=== PATIENT | male | born 1940 | race Caucasian/White ===

== ENCOUNTER 2018-08-19 10:04 | Emergency (ER) | payer OTHER ==
[2018-08-19 12:53] LABS: Absolute Monocytes 1.6 K/uL (0.1-1.3); Absolute Neutrophil 7.6 K/uL (1.8-8.0); Basophils % 0.2 % (0-1.3); Eosinophils % 0.5 % (0-4.4); Hematocrit 44.9 % (39.6-49.0); Lymphocytes % 24.8 % (15.3-44.8); MCH 30.9 pg (27.0-35.0); MCV 90.9 fL (80-100); MPV 7.1 fL (7.6-11.3); Monocytes % 12.7 % (3.3-12.3); RBC Red Blood Cell Count 4.94 M/uL (4.33-5.43)
[2018-08-19 12:54] LABS: Protime INR 1.09
[2018-08-19] MEDS ORDERED: NA CHLORIDE 0.9% 500 ML ONE (12:55)
[2018-08-19 13:13] LABS: ALT/SGPT 50 U/L (12-78); AST/SGOT 25 U/L (15-37); Albumin 3.4 g/dL (3.4-5.0); Alkaline Phosphatase 97 U/L (45-117); BUN Blood Urea Nitrogen 27 mg/dL (7-18); Bicarbonate 27 mmol/L (21-32); Bilirubin Direct 0.1 mg/dL (0-0.2); Bilirubin Total 0.4 mg/dL (0.2-1.0); Glucose Level 98 mg/dL (74-106); Lipase 109 U/L (73-393); Magnesium 2.3 mg/dL (1.8-2.4); NT PRO-BNP 306 pg/mL (<450); Potassium 4.1 mmol/L (3.5-5.1); Protein, Total 9.1 g/dL (6.4-8.2); Sodium Level 140 mmol/L (136-145); Troponin (Emerg Dept Use Only) < 0.02 ng/mL (0.0-0.045)
--- NOTE | 2018-08-19 14:14 | RAD REPORT ---
EXAM DESCRIPTION: CT - Abdomen Pelvis W Contrast - 08/19/2018 1:53 pm CLINICAL HISTORY: Abdominal pain/ lower abdominal pain. COMPARISON: none. TECHNIQUE: Computed axial tomography of the abdomen pelvis was obtained. 100 cc Isovue-300 was admin istered intravenously. Oral contrast was not requested which limits evaluation of bowel. All CT scans are performed using dose optimization technique as appropriate and may include automated exposure control or mA/KV adjustment according to patient size. FINDINGS: The liver, pancreas, adrenal and kidneys appear unremarkable. Splenic granulomata are seen . A small left renal cyst is seen The appendix is normal. Diverticula stem from the colon. Mild stranding is present adjacent to sigmoid colon. An abscess is n ot noted. The prostate gland is mildly to moderately enlarged. Right inguinal hernia contains fat. Bilateral lower external iliac lymph node measures up to 1.5 centimeters IMPRESSION: Mild sigmoid diverticulitis Mild lower pelvic lymphadenopathy. A followup ultrasound in 3 months is recommended to assess stabili ty/resolution
--- NOTE | 2018-08-19 14:24 | RAD REPORT ---
EXAM DESCRIPTION: [place] Single View08/19/2018 1:22 pm CLINICAL HISTORY: Chest pain COMPARISON: none FINDINGS: The lungs appear clear of acute infiltrate. The heart is normal size IMPRESSION: No acute abnormalities displayed
--- NOTE | 2018-08-19 15:07 | ER ---
Nurse's Notes [facility] Name: Deirdre Hodges Age: 78 yrs Sex: Male : 1940 Arrival Date: 08/19/2018 Time: 10:09 Bed 18 Private MD: Out, [facility] Diagnosis: Diverticulitis of large intestine without perforation or abscess without bleeding Presentation: 08/19 10:19 Presenting complaint: Patient states: Pain all over for 2 weeks. Seen by PCP this week aj for same complaint. No SOB, fever, or cough reported. Transition of care: patient was not received from another setting of care. Onset of symptoms was August 05, 2018. Risk Assessment: Do you want to hurt yourself or someone else? Patient reports no desire to harm self or others. Initial Sepsis Screen: Does the patient meet any 2 criteria? No. Patient's initial sepsis screen is negative. Does the patient have a suspected source of infection? No. Patient's initial sepsis screen is negative. Care prior to arrival: None. 10:19 Method Of Arrival: Ambulatory aj 10:19 Acuity: NAZANIN 3 aj Triage Assessment: 10:22 General: Appears in no apparent distress. comfortable, Behavior is calm, cooperative, aj appropriate for age. Pain: Complains of pain in entire body. Neuro: Level of Consciousness is awake, alert, obeys commands, Oriented to person, place, time, situation, Appropriate for age. Respiratory: Airway is patent Respiratory effort is even, unlabored, Respiratory pattern is regular, symmetrical. Derm: Skin is intact, is healthy with good turgor, Skin is pink, warm \T\ dry. normal. Musculoskeletal: Reports body aches. 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 - Social history:: Smoking status: Patient/guardian denies using tobacco. - Ebola Screening: : Patient negative for fever greater than or equal to 101.5 degrees Fahrenheit, and additional compatible Ebola Virus Disease symptoms Patient denies exposure to infectious person Patient denies travel to an Ebola-affected area in the 21 days before illness onset No symptoms or risks identified at this time. Screenin:23 Abuse screen: Denies threats or abuse. Denies injuries from another. Nutritional bp screening: No deficits noted. Tuberculosis screening: No symptoms or risk factors identified. Fall Risk None identified. Assessment: 12:21 General: Appears in no apparent distress. comfortable, Behavior is calm, cooperative, bp appropriate for age. Pain: Complains of pain in generalized. Neuro: Level of Consciousness is awake, alert, obeys commands, Oriented to person, place, time, situation, Appropriate for age. Cardiovascular: No deficits noted. Respiratory: Airway is patent Respiratory effort is even, unlabored, Respiratory pattern is regular, symmetrical. GI: No signs and/or symptoms were reported involving the gastrointestinal system. : No signs and/or symptoms were reported regarding the genitourinary system. EENT: No deficits noted. Derm: No deficits noted. Musculoskeletal: Circulation, motion, and sensation intact. Range of motion: intact in all extremities. 14:15 Reassessment: PT RETURNED FROM CT. ALL CURRENT STUDIES COMPLETE, RESULTS PENDING. bp 15:22 Reassessment: PT D/C HOME AMBULATORY WITH FAMILY, DX WITH DIVERTICULITIS. bp Vital Signs: 10:22 BP 155 / 69; Pulse 76; Resp 19; Temp 97.4; Pulse Ox 94% on R/A; Weight 80.29 kg; Height aj 6 ft. 0 in. (182.88 cm); 12:42 BP 158 / 119; Pulse 66; Resp 14; Pulse Ox 98% ; bp 14:16 BP 142 / 64; Pulse 59; Resp 14; Pulse Ox 98% ; bp 14:40 BP 132 / 64; Pulse 63; Resp 14; Pulse Ox 96% ; bp 10:22 Body Mass Index 24.01 (80.29 kg, 182.88 cm) aj ED Course: 10:09 Patient arrived in ED. mr 10:10 Out, of Town is Private Physician. mr 10:21 Triage completed. aj 10:22 Arm band placed on left wrist. Patient placed in waiting room, Patient notified of wait aj time. 12:12 Timothy Croft PA is PHCP. [facility] 12:12 Sathish Young MD is Attending Physician. jm 12:21 Sb Roca, KRISTIAN is Primary Nurse. bp 12:23 Patient has correct armband on for positive identification. Bed in low position. Call bp light in reach. Side rails up X2. Adult w/ patient. 12:42 Inserted saline lock: 20 gauge in right antecubital area, using aseptic technique. bp Blood collected. 12:50 EKG done, by ED staff, reviewed by Timothy WINKLER. [facility] 13:00 Radiology exam delayed due to lab results not completed at this time. (BUN/Creatinine). cw1 13:21 X-ray completed. Portable x-ray completed in exam room. jr1 13:22 XRAY Chest (1 view) In Process Unspecified. EDMS 13:53 CT completed. Patient tolerated procedure well. Patient moved back from CT. cw1 13:54 CT Abd/Pelvis - W/Contrast In Process Unspecified. EDMS 15:22 No provider procedures requiring assistance completed. IV discontinued, intact, bp bleeding controlled, No redness/swelling at site. Pressure dressing applied. Administered Medications: 12:45 Drug: NS 0.9% 500 ml Route: IV; Rate: bolus; Site: right antecubital; bp 13:45 Follow up: IV Status: Completed infusion; IV Intake: 500ml bp Intake: 13:45 IV: 500ml; Total: 500ml. bp Outcome: 15:06 Discharge ordered by MD. [facility] 15:22 Discharged to home ambulatory, with family. bp 15:22 Condition: stable 15:22 Discharge instructions given to patient, family, Instructed on discharge instructions, follow up and referral plans. medication usage, Demonstrated understanding of instructions, follow-up care, medications, Prescriptions given X 3. 15:23 Patient left the ED. bp Signatures: Dispatcher [employer] EDMS Neelam Liriano, RN Timothy Gray PA PA jmm RiveraKim mr Randhawa Sirena jr1 Juanita Quiles cw1 Keysha Borges [facility] Sb Roca, RN RN bp
--- NOTE | 2018-08-19 15:07 | EDPHYS ---
Physician Documentation [facility] Name: Deirdre Hodges Age: 78 yrs Sex: Male : 1940 Arrival Date: 08/19/2018 Time: 10:09 Bed 18 Private MD: Out, [facility] ED Physician Sathish Young HPI: 08/19 12:22 This 78 yrs old Male presents to ER via Ambulatory with complaints of Pain jmm All Over, Weakness. 12:22 This is a 78 year old male that presents to the ED with fatigue, weakness, bilateral jmm groin pain, abdominal pain, and bilateral neck pain beginning approx 3 weeks ago. Patient states receiving a cortisone shot for hip pain with no relief of pain. Denies trauma. . Onset: The symptoms/episode began/occurred gradually, 3 week(s) ago. The patient has experienced a previous episode. 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 - Social history:: Smoking status: Patient/guardian denies using tobacco. - Ebola Screening: : Patient negative for fever greater than or equal to 101.5 degrees Fahrenheit, and additional compatible Ebola Virus Disease symptoms Patient denies exposure to infectious person Patient denies travel to an Ebola-affected area in the 21 days before illness onset No symptoms or risks identified at this time. ROS: 12:22 Cardiovascular: Negative for chest pain, palpitations, and edema, Respiratory: Negative jmm for shortness of breath, cough, wheezing, and pleuritic chest pain. 12:22 Constitutional: Positive for body aches, malaise. 12:22 Abdomen/GI: Positive for abdominal pain. 12:22 MS/extremity: Positive for pain. 12:22 All other systems are negative. Exam: 12:22 Head/Face: atraumatic. Eyes: EOMI, no conjunctival erythema appreciated Neck: jmm Trachea midline, Supple Chest/axilla: Normal chest wall appearance and motion. Cardiovascular: Regular rate and rhythm. No edema appreciated Respiratory: Normal respirations, no respiratory distress appreciated 12:22 Constitutional: The patient appears in no acute distress, alert, awake. 12:22 Abdomen/GI: Inspection: abdomen appears normal, Bowel sounds: normal, Palpation: soft, mild abdominal tenderness, in the right lower quadrant and left lower quadrant. 12:22 Back: ROM is normal. 12:22 Musculoskeletal/extremity: ROM: intact in all extremities. 12:22 Skin: Appearance: Color: normal in color. 12:22 Neuro: Orientation: is normal, Mentation: is normal, Memory: is normal. 12:22 Psych: Behavior/mood is pleasant, cooperative. Vital Signs: 10:22 BP 155 / 69; Pulse 76; Resp 19; Temp 97.4; Pulse Ox 94% on R/A; Weight 80.29 kg; Height aj 6 ft. 0 in. (182.88 cm); 12:42 BP 158 / 119; Pulse 66; Resp 14; Pulse Ox 98% ; bp 14:16 BP 142 / 64; Pulse 59; Resp 14; Pulse Ox 98% ; bp 14:40 BP 132 / 64; Pulse 63; Resp 14; Pulse Ox 96% ; bp 10:22 Body Mass Index 24.01 (80.29 kg, 182.88 cm) aj MDM: 12:22 Patient medically screened. [facility] 13:49 Data reviewed: vital signs, nurses notes. [facility] 15:03 Data reviewed: lab test result(s), radiologic studies, CT scan. Counseling: I had a [facility] detailed discussion with the patient and/or guardian regarding: the historical points, exam findings, and any diagnostic results supporting the discharge/admit diagnosis, lab results, radiology results, the need for outpatient follow up, to return to the emergency department if symptoms worsen or persist or if there are any questions or concerns that arise at home. ED course: Patient is alert and non toxic in appearance in the ED. Patient has mild diverticulitis on CT imaging. Patient will follow up with PCP on Tuesday otherwise given strict return precautions. Patient understood and agrees with the plan of care. . 08/19 12: Order name: Basic Metabolic Panel; Complete Time: 13: [facility] 08/19 12: Order name: CBC with Diff; Complete Time: : [facility] 08/19 12:22 Order name: LFT's; Complete Time: 13: [facility] 08/19 12: Order name: Magnesium; Complete Time: :27 [facility] 08/19 12:22 Order name: NT PRO-BNP; Complete Time: 13:27 [facility] 08/19 12:22 Order name: PT-INR; Complete Time: 13: [facility] 08/19 12:22 Order name: Troponin (emerg Dept Use Only); Complete Time: 13: [facility] 08/19 12:22 Order name: XRAY Chest (1 view); Complete Time: 14:28 [facility] 08/19 12:22 Order name: EKG; Complete Time: 12:23 [facility] 08/19 12:22 Order name: Cardiac monitoring; Complete Time: 12:42 [facility] 08/19 12:22 Order name: EKG - Nurse/Tech; Complete Time: 12:42 [facility] 08/19 12:22 Order name: Lipase; Complete Time: 13: [facility] 08/19 12:29 Order name: CT Abd/Pelvis - W/Contrast; Complete Time: 14:28 [facility] 08/19 12:22 Order name: IV Saline Lock; Complete Time: 12:41 [facility] 08/19 12:22 Order name: Labs collected and sent; Complete Time: 12: [facility] 08/19 12:22 Order name: O2 Per Protocol; Complete Time: 12:42 [facility] 08/19 12:22 Order name: O2 Sat Monitoring; Complete Time: 12:42 [facility] Administered Medications: 12:45 Drug: NS 0.9% 500 ml Route: IV; Rate: bolus; Site: right antecubital; bp 13:45 Follow up: IV Status: Completed infusion; IV Intake: 500ml bp Disposition: 17:51 Co-signature as Attending Physician, Sathish Young MD. Disposition: 08/19/18 15:06 Discharged to Home. Impression: Diverticulitis of large intestine without perforation or abscess without bleeding. - Condition is Stable. - Discharge Instructions: Diverticulitis. - Prescriptions for Cephalexin 500 mg Oral Capsule - take 1 capsule by ORAL route every 6 hours for 10 days; 40 capsule. Flagyl 500 mg Oral Tablet - take 1 tablet by ORAL route every 8 hours for 10 days; 30 tablet. Ultram 50 mg Oral Tablet - take 1 tablet by ORAL route every 6 hours As needed; 30 tablet. - Medication Reconciliation Form, Thank You Letter, Antibiotic Education, Prescription Opioid Use form. - Follow up: Private Physician; When: 1 - 2 days; Reason: Recheck today's complaints, Continuance of care, Re-evaluation by your physician. Signatures: Dispatcher [employer] Neelam Stack, RN RN Timothy Ortiz PA PA jmm Starr, Gregory, MD MD gs Peltier, Brian, RN RN bp Corrections: (The following items were deleted from the chart) 13:44 12:22 Constitutional: Negative for fever, chills, and weight loss, eric reyes 15:23 15:06 08/19/2018 15:06 Discharged to Home. Impression: Diverticulitis of large bp intestine without perforation or abscess without bleeding. Condition is Stable. Forms are Medication Reconciliation Form, Thank You Letter, Antibiotic Education, Prescription Opioid Use. Follow up: Private Physician; When: 1 - 2 days; Reason: Recheck today's complaints, Continuance of care, Re-evaluation by your physician. eric
--- NOTE | 2018-08-20 19:16 | EKG ---
Test Date: 2018-08-19 Test Time: 12:44:59 Scissors Grinder: AIDA MEASUREMENT RESULTS: Intervals: Rate: 65 NH: 136 QRSD: 102 QT: 386 QTc: 401 [place]: P: 54 NH: 136 QRS: 23 T: 38 INTERPRETIVE STATEMENTS: Sinus rhythm with premature atrial complexes Incomplete right bundle branch block Borderline ECG No previous ECG available for comparison Electronically Signed On 08-20-18 19:14:52 CDT by Lloyd Garcia
== END 2018-08-19 15:23 | disposition home or self-care (01) ==
LOC: ER 10:04
DX: K57.32 Diverticulitis of large intestine without perforation or abscess without bleeding (principal); I10 Essential (primary) hypertension; Z85.89 Personal history of malignant neoplasm of other organs and systems
CPT/HCPCS: 36415; 71045; 74177; 80048; 80076; 83690; 83735; 83880; 84484; 85025; 85610; 93005; 96360; 99284; Q9967